=== PATIENT | male | born 1955 | race Caucasian/White ===

== ENCOUNTER 2016-05-07 13:06 | Inpatient (IN) | payer BC, OTHER ==
[~2016-05-07] VITALS: Ht 175.3 cm; Wt 84.0 kg
[2016-05-07] MEDS ORDERED: SODIUM CHLOR 0.9% 1000 ML INJ 1,000 ML IV SCH (13:12)
[2016-05-07] MEDS ORDERED: LISI10TA3 PO (13:14)
[2016-05-07 13:15] VITALS: BP 174/78; PULSE 94; RESP 18; TEMP 98.6; O2SAT 95
[2016-05-07] MEDS ORDERED: MORPHINE SULFATE 4 MG/ML INJ IV PUSH ONE ×2 (13:15→16:15)
[2016-05-07] MEDS ORDERED: SODIUM CHLORIDE 0.9% FLUSH 5 ML FLUSH IVF PRN ×2 (13:15→17:15)
[2016-05-07 13:22] VITALS: O2SAT 97
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
[2016-05-07 13:57] LABS: AUTOMATED NEUTROPHIL # 5.8 TH/MM3 (1.8-7.7); BASOPHIL # 0.1 TH/MM3 (0-0.2); BASOPHIL % 0.7 % (0.0-2.0); EOSINOPHIL # 0.1 TH/MM3 (0-0.4); EOSINOPHIL % 1.6 % (0.0-4.0); HEMATOCRIT 40.4 % (39.0-51.0); HEMO FLAGS DIFF FINAL; LYMPH % 22.3 % (9.0-44.0); LYMPHOCYTE # 1.8 TH/MM3 (1.0-4.8); MEAN CELL VOLUME 85.2 FL (80.0-100.0); MEAN CORPUSCULAR HEMOGLOBIN 29.9 PG (27.0-34.0); MEAN CORPUSCULAR HGB CONC 35.1 % (32.0-36.0); MONO % 5.4 % (0.0-8.0); PLATELET COUNT 218 TH/MM3 (150-450); RED BLOOD COUNT 4.75 MIL/MM3 (4.50-5.90); RED CELL DISTRIBUTION WIDTH 13.9 % (11.6-17.2); WHITE BLOOD COUNT 8.2 TH/MM3 (4.0-11.0)
[2016-05-07 14:08] LABS: ANION GAP 11 MEQ/L (5-15); AST (GOT) 30 U/L (15-37); BICARBONATE 26.8 MEQ/L (21.0-32.0); BLOOD UREA NITROGEN 21 MG/DL (7-18); CHLORIDE 102 MEQ/L (98-107); GLOMERULAR FILTRATION RATE 36 ML/MIN (>89); POTASSIUM 3.8 MEQ/L (3.5-5.1); SODIUM (NA) 140 MEQ/L (136-145)
[2016-05-07 14:11] LABS: ALKALINE PHOSPHATASE 60 U/L (45-117); ALT (GPT) 29 U/L (12-78); TOTAL BILIRUBIN ADULT 0.6 MG/DL (0.2-1.0)
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
[2016-05-07] MEDS ORDERED: SODIUM CHLOR 0.9% 1000 ML INJ 1,000 ML IV ONE (14:30)
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
[2016-05-07] MEDS ORDERED: IODIXANOL 320 MG/ML 10 ML VIAL (for Rad CT) IV ONE (15:51)
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
[2016-05-07] MEDS ORDERED: MAGNESIUM HYDROXIDE SUSP 30 ML CUP PO PRN (17:15)
[2016-05-07] MEDS ORDERED: ONDANSETRON HCL 4 MG/2 ML VIAL IV PRN (17:15)
[2016-05-07] MEDS ORDERED: CHLORHEXIDINE GLUCONATE 2 % 1 PACK (2 CLOTHS) TOP PRN (17:15)
[2016-05-07] MEDS ORDERED: HYDROmorphone HCL PF 1 MG/ML VIAL IVP PRN (17:15)
[2016-05-07] MEDS ORDERED: MISCELLANEOUS NURSING INFORMATION XX SCH (17:15)
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
[2016-05-07] MEDS ORDERED: LIDOCAINE 1%/EPINEPHrine 1:100,000 SOLN 20 ML VIAL INFIL ONE (17:45)
[2016-05-07] MEDS: ENOXAPARIN SODIUM 30 MG/0.3 ML SYRINGE SQ SCH (17:55)
--- NOTE | 2016-05-07 18:31 | PD ---
Physical Exam Time Seen by Provider: 18:29 Narrative I repaired the two lacerations to the right parietal scalp. Data Data Last Documented VS Vital Signs Date Time Temp Pulse Resp B/P Pulse Ox O2 Delivery O2 Flow Rate FiO2 05/07/16 13:31 79 18 97 Nasal Cannula 2 05/07/16 13:15 98.6 174/78 Orders Complete Blood Count With Diff (05/07/16 13:12) Ct Brain W/O Iv Contrast(Rout) (05/07/16 13:12) Ct Cerv Spine W/O Contrast (05/07/16 13:12) Ct Abd/Pel W Iv Contrast(Rout) (05/07/16 13:12) Ct Thorax/ Chest W Iv Contrast (05/07/16 13:12) Iv Access Insert/Monitor (05/07/16 13:12) Ecg Monitoring (05/07/16 13:12) Oximetry (05/07/16 13:12) Oxygen Administration (05/07/16 13:12) Sodium Chlor 0.9% 1000 Ml Inj (Ns 1000 M (05/07/16 13:12) Sodium Chloride 0.9% Flush (Ns Flush) (05/07/16 13:15) Ankle, Complete ([id number]) (05/07/16 ) Morphine Inj (Morphine Inj) (05/07/16 13:15) Comprehensive Metabolic Panel (05/07/16 13:12) Sodium Chlor 0.9% 1000 Ml Inj (Ns 1000 M (05/07/16 14:30) Iodixanol 320 Inj (Rad Ct) (Visipaque 32 (05/07/16 15:51) Splint Or Brace Apply/Monitor (05/07/16 16:10) Admit Order (Ed Use Only) (05/07/16 ) Morphine Inj (Morphine Inj) (05/07/16 16:15) Resp Incentive Spirometry (05/07/16 ) Labs Laboratory Tests Test 05/07/16 13:33 White Blood Count 8.2 TH/MM3 Red Blood Count 4.75 MIL/MM3 Hemoglobin 14.2 GM/DL Hematocrit 40.4 % Mean Corpuscular Volume 85.2 FL Mean Corpuscular Hemoglobin 29.9 PG Mean Corpuscular Hemoglobin 35.1 % Concent Red Cell Distribution Width 13.9 % Platelet Count 218 TH/MM3 Mean Platelet Volume 7.8 FL Neutrophils (%) (Auto) 70.0 % Lymphocytes (%) (Auto) 22.3 % Monocytes (%) (Auto) 5.4 % Eosinophils (%) (Auto) 1.6 % Basophils (%) (Auto) 0.7 % Neutrophils # (Auto) 5.8 TH/MM3 Lymphocytes # (Auto) 1.8 TH/MM3 Monocytes # (Auto) 0.4 TH/MM3 Eosinophils # (Auto) 0.1 TH/MM3 Basophils # (Auto) 0.1 TH/MM3 CBC Comment DIFF FINAL Differential Comment Sodium Level 140 MEQ/L Potassium Level 3.8 MEQ/L Chloride Level 102 MEQ/L Carbon Dioxide Level 26.8 MEQ/L Anion Gap 11 MEQ/L Blood Urea Nitrogen 21 MG/DL Creatinine 1.92 MG/DL Estimat Glomerular Filtration 36 ML/MIN Rate Random Glucose 114 MG/DL Calcium Level 8.5 MG/DL Total Bilirubin 0.6 MG/DL Aspartate Amino Transf 30 U/L (AST/SGOT) Alanine Aminotransferase 29 U/L (ALT/SGPT) Alkaline Phosphatase 60 U/L Total Protein 7.0 GM/DL Albumin 3.9 GM/DL MDM Supervised Visit with REAL: Yes Narrative Course I repaired the two lacerations to the right parietal scalp. See my procedure note for laceration repair. Procedures Procedure Narrative LACERATION LOCATION: Right parietal scalp (upper) LENGTH: L-shaped 2 cm NUMBER OF STITCHES/SLOANE: 5 sloane REPAIR: The area of the laceration was prepped with Betadine and sterilely draped. The laceration was infiltrated with 1% lidocaine with epinephrine. The wound was copiously irrigated and explored without evidence of foreign body, tendon injury or neurovascular injury. The wound was closed using sloane. This was a single layer repair. A sterile dressing was applied. The patient was advised to keep the dressing clean and dry. Patient tolerated the procedure well. LACERATION LOCATION: Right parietal scalp (lower) LENGTH: 1.5cm NUMBER OF STITCHES/SLOANE: 3 sloane REPAIR: The area of the laceration was prepped with Betadine and sterilely draped. The laceration was infiltrated with 1% lidocaine with epinephrine. The wound was copiously irrigated and explored without evidence of foreign body, tendon injury or neurovascular injury. The wound was closed using sloane. This was a single layer repair. A sterile dressing was applied. The patient was advised to keep the dressing clean and dry. Patient tolerated the procedure well. Shira Cameron May 07, 2016 18:31
[2016-05-07 19:05] VITALS: BP 126/61; PULSE 77; RESP 16; TEMP 99.5; O2SAT 97
[2016-05-08 00:02] VITALS: BP 125/62; PULSE 69; RESP 16; TEMP 97.6; O2SAT 95
[2016-05-08 04:00] VITALS: BP 123/66; PULSE 73; RESP 16; TEMP 98.9; O2SAT 97
[2016-05-08] MEDS ORDERED: CHLORHEXIDINE GLUCONATE 2 % 1 PACK (2 CLOTHS) TOP SCH (04:00)
[2016-05-08] MEDS: ENOXAPARIN SODIUM 30 MG/0.3 ML SYRINGE SQ SCH (06:00)
[2016-05-08 06:47] LABS: AUTOMATED NEUTROPHIL # 3.9 TH/MM3 (1.8-7.7); BASOPHIL % 0.4 % (0.0-2.0); EOSINOPHIL % 0.7 % (0.0-4.0); HEMATOCRIT 36.7 % (39.0-51.0); HEMO FLAGS DIFF FINAL; LYMPH % 14.7 % (9.0-44.0); LYMPHOCYTE # 0.8 TH/MM3 (1.0-4.8); MEAN CORPUSCULAR HEMOGLOBIN 30.6 PG (27.0-34.0); MEAN CORPUSCULAR HGB CONC 35.6 % (32.0-36.0); MONO % 7.7 % (0.0-8.0); NEUT % 76.5 % (16.0-70.0); PLATELET COUNT 152 TH/MM3 (150-450); RED BLOOD COUNT 4.27 MIL/MM3 (4.50-5.90); RED CELL DISTRIBUTION WIDTH 13.8 % (11.6-17.2); WHITE BLOOD COUNT 5.1 TH/MM3 (4.0-11.0)
[2016-05-08 07:03] LABS: BICARBONATE 26.9 MEQ/L (21.0-32.0); POTASSIUM 4.4 MEQ/L (3.5-5.1)
[2016-05-08 08:00] VITALS: BP_SYST 112; BP_SYST 137; BP_DIAS 59; BP_DIAS 69; PULSE 75; PULSE 81; RESP 16; TEMP 98; TEMP 99.3; O2SAT 96
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
[2016-05-08] MEDS ORDERED: LISINOPRIL 10 MG TAB PO SCH (09:00)
[2016-05-08] MEDS ORDERED: FAMOTIDINE 20 MG TAB PO SCH (09:00)
[2016-05-08] MEDS ORDERED: LACTULOSE SYRUP 20 GM/30 ML CUP PO SCH (09:00)
[2016-05-08] MEDS ORDERED: DOCUSATE SODIUM 50 MG/SENNA 8.6 MG TAB PO SCH (09:00)
[2016-05-08] MEDS ORDERED: SENN1TAB PO (13:04)
[2016-05-08] MEDS ORDERED: ROBA500T PO (13:51)
--- NOTE | 2016-05-08 14:58 | PD.ORT.PN ---
Subjective Subjective Remarks Right ankle pain Objective Vitals Vital Signs Date Time Temp Pulse Resp B/P Pulse Ox O2 Delivery O2 Flow Rate FiO2 05/08/16 08:00 99.3 75 16 137/69 96 05/08/16 04:00 98.9 73 16 123/66 97 05/08/16 00:02 97.6 69 16 125/62 95 05/07/16 19:05 99.5 77 16 126/61 97 I/O 05/07/16 05/07/16 05/07/16 05/08/16 05/08/16 05/08/16 07:00 15:00 23:00 07:00 15:00 23:00 Intake Total 480 ml 0 ml Output Total 400 ml 600 ml Balance 80 ml -600 ml Intake Oral 480 ml 0 ml Output Urine Total 400 ml 600 ml Result Diagram: 05/08/16 0559 05/08/16 0559 Imaging Last 24 hours Impressions Chest X-Ray 05/08/16 0000 Signed Impressions: Service Date/Time: Sunday, May 08, 2016 07:11 - CONCLUSION: 1. Right basilar atelectasis. Titus Lazo MD Objective Remarks full consult dictated Assessment & Plan Problem List: (1) Avulsion fracture of right ankle Plan: Options were discussed Recommend conservative management He already has been placed in fracture walker He should limit his weight bearing to control his pain and improve bone healing He can follow up in office or with Orthopaedic surgeon in [place] All questions answered Blaine Askew MD May 08, 2016 14:57
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
== END 2016-05-08 16:15 | disposition home or self-care (01) | DRG 184 ==
LOC: NEPA 13:06 → NEDA 16:16 → OBSVTOIN 17:09 → N06B 18:37
PROVIDERS: ADMIT Surgery Trauma Surgery; ATTEND Surgery Trauma Surgery
PROC: 0HQ0XZZ Repair Scalp Skin, External Approach (ICD-10-PCS; principal; 2016-05-07)
DX: S22.41XA Multiple fractures of ribs, right side, initial encounter for closed fracture (principal); J93.9 Pneumothorax, unspecified; S82.64XA Nondisplaced fracture of lateral malleolus of right fibula, initial encounter for closed fracture; S01.01XA Laceration without foreign body of scalp, initial encounter; V29.88XA Motorcycle rider (driver) (passenger) injured in other specified transport accidents, initial encounter; Y92.410 Unspecified street and highway as the place of occurrence of the external cause; I10 Essential (primary) hypertension
CPT/HCPCS: 12002; 70450; 71010; 71260; 72125; 73610; 74177; 80048; 80053; 85025; 94150; 96361; 96374; E0113; J1650; J2270; J2405; J7030; L2114; Q9967